=== PATIENT | female | born 1955 | race African-American/Black ===

== ENCOUNTER → 2020-02-03 09:29 | Outpatient (CLI) | payer BC, SELFPAY ==
--- NOTE | ~2020-02-03 | MMUS_ITS ---
EXAMINATION: MM diagnostic crystal LT w raji, US breast LT limited HISTORY: New 1 cm left breast mass, mid lateral aspect, anterior third, reported on 05/06/2019 bilate ral digital screening mammogram examinations TECHNIQUE: Full field and spot ML, MLO and cc 3-D tomosynthesis images of the left breast were perfor med and synthetic 2-D images were generated. CAD analysis was submitted and interpreted. High resolut ion lower outer quadrant left breast ultrasound was performed. COMPARISON: 05/06/2019 bilateral digital screening mammogram BREAST PARENCHYMAL COMPOSITION: There are scattered areas of fibroglandular density. FINDINGS: MAMMOGRAPHIC FINDINGS: There is a benign heavily calcified 5.5 x 9.5 mm fibroadenoma in the mid to lower inner left breast. There is a low-density circumscribed 5.5 x 9.5 mm mass in the mid to lower inner left breast; lower-o uter quadrant left breast ultrasound examination was performed. ULTRASOUND: 3:00 3 cm from nipple: There is a 7.3 x 7.9 mm sonolucency with through transmission posterior enhanc ement, compatible with simple cyst. IMPRESSION: 1. Benign 7.3 x 7.9 mm simple cyst at 3:00 3 cm from nipple, corresponding to new mass reported on sc reening mammogram of 05/06/2019 2. Benign calcified fibroadenoma of the mid to lower inner left breast BI-RADS Category 2: Benign finding(s). Routine mammographic screening is recommended. Reviewed, dictated and finalized at location A. IMPRESSION: 1. Benign 7.3 x 7.9 mm simple cyst at 3:00 3 cm from nipple, corresponding to n ew mass reported on screening mammogram of 05/06/2019 2. Benign calcified fibroadenoma of the mid to lower inner left breast BI-RADS Category 2: Benign finding(s). Routine mammographic screening is recommended.
== END ==
PROVIDERS: PCP Internal Medicine; Visit Provider Internal Medicine
DX: R92.8 Other abnormal and inconclusive findings on diagnostic imaging of breast (principal)
CPT/HCPCS: 76642; 77061; 77065; G0279

== ENCOUNTER → 2021-07-09 15:18 | Outpatient (CLI) | payer BC, SELFPAY ==
--- NOTE | ~2021-07-09 | MM_ITS ---
EXAMINATION: MM screening crystal BI w raji HISTORY: Screening mammogram TECHNIQUE: Craniocaudal and mediolateral oblique 3-D tomosynthesis images were obtained and synthetic 2-D images were generated. CAD analysis was submitted and interpreted. COMPARISON: 02/03/2020 diagnostic left mammogram and limited left breast ultrasound examination 05/06/2019 bilateral screening mammogram examination 10/06/2017 bilateral screening mammogram examination BREAST PARENCHYMAL COMPOSITION: There are scattered areas of fibroglandular density. FINDINGS: Occasional bilateral benign calcifications including up to 9 mm densely calcified left fibr oadenoma. There is no evidence of suspicious mass, calcification, or architectural distortion to sugg est malignancy in either breast. There has been no suspicious interval change. IMPRESSION: 1. No mammographic evidence of malignancy. 2. Recommend routine screening mammography in one year. BI-RADS Category 2: Benign finding(s). Reviewed, dictated and finalized at location A. 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
== END ==
PROVIDERS: PCP Internal Medicine; Visit Provider Internal Medicine
DX: Z12.31 Encounter for screening mammogram for malignant neoplasm of breast (principal)
CPT/HCPCS: 77063; 77067

== ENCOUNTER → 2022-12-25 12:22 | Outpatient (CLI) | payer BC, SELFPAY ==
--- NOTE | ~2022-12-25 | MM_ITS ---
EXAMINATION: MM screening [facility] BI w raji HISTORY: Screening mammogram TECHNIQUE: Craniocaudal and mediolateral oblique 3-D tomosynthesis images were obtained and synthetic 2-D images were generated. CAD analysis was submitted and interpreted. COMPARISON: 07/09/2021, 02/03/2020, 05/06/2019 BREAST PARENCHYMAL COMPOSITION: There are scattered areas of fibroglandular density. FINDINGS: No suspicious mass, calcification, or architectural distortion are identified in either nunu ast to suggest malignancy. There has been no suspicious interval change. IMPRESSION: 1. No mammographic evidence of malignancy. 2. Recommend routine screening mammography in one year. BI-RADS Category 1: Negative Reviewed, dictated and finalized at location A.
== END ==
PROVIDERS: PCP Internal Medicine; Visit Provider Internal Medicine
DX: Z12.31 Encounter for screening mammogram for malignant neoplasm of breast (principal)
CPT/HCPCS: 77063; 77067

== ENCOUNTER 2024-08-12 10:00 | Outpatient (CLI) | payer BC, SELFPAY ==
--- NOTE | ~2024-08-12 | MM_ITS ---
EXAMINATION: MM screening [facility] HISTORY: Screening TECHNIQUE: Craniocaudal and mediolateral oblique 3-D tomosynthesis images were obtained and synthetic 2-D images were generated. CAD analysis was submitted and interpreted. COMPARISON: 12/25/2022 and dating back to 05/06/2019 BREAST PARENCHYMAL COMPOSITION: There are scattered areas of fibroglandular density. FINDINGS: Punctate and bulky calcifications are detected bilaterally, stable and benign in appearance . Stable parenchymal pattern without suspicious microcalcifications, architectural distortion, discrete masses or significant asymmetry. IMPRESSION: 1. No mammographic evidence of malignancy. 2. Recommend routine screening mammography in one year. BI-RADS Category 2: Benign finding(s). Reviewed, dictated and finalized at location A.
--- OUTSIDE RECORDS SUMMARY | 2024-08-12 11:00 | XMS_ITS | Clinical Summary ---
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 Name Role Phone Unavailable Primary Care Provider Unavailabl e Social History Tobacco Use Types Packs/Day Years Used Date Smoking Tobacco: Never Assessed Comments Unknown Sex and Gender Information Value Date Recorded Sex Assigned at Not on file Legal Sex Female 7:50 PM CDT Gender Identity Not on file Sexual Orientation Not on file Plan of Treatment Health Maintenance Due Date Last Done Comments Colorectal Cancer Screening Colonoscopy (10 Years) 1955 Hepatitis C 1974 DTaP, Tdap and Td Vaccines (1 - Tdap) 10/01/1975 Zoster Vaccines (1 of 2) 2006 Mammogram Screening 02/27/2017 02/27/2015, 02/08/2014, 04/07/2012, Additional history exists Dexa Scan (General) 2021 Pneumococcal Vaccine: 65+ Years (1 of 1 - PCV) 2021 COVID-19 Vaccine (1 - 2023- season) 2024 Influenza Adult (#1) 2024 RSV Immunization or 60+ Years (1 - 1-dose 75+ series) 10/01/2031 Meningococcal B Vaccine Aged Out No l onger eligible based on patient's age to complete this topic Meningococcal Vaccine Aged Out No richard maki eligible based on patient's age to complete this topic RSV Immunizations Under 20 Months Aged Out No longer eligible based on patient's age to complete this topic Procedures Procedure Name Priority Date/Time Associated Diagnosis Comments MAMMOGRAM GENERIC (SCAN ORDER) 02/27/2015 from Last 3 Months or Most Recently Relevant to Health Maintenance Results * MAMMOGRAM GENERIC (02/27/2015) Anatomical Region Laterality Modality Other 02/27/2015 Narrative 02/27/2015 Ordered by an unspecified provider. us Documents Scanned SCANNING Final Result from Last 3 Months or Most Recently Relevant to Health Maintenance
--- OUTSIDE RECORDS SUMMARY | 2024-08-12 11:00 | XMS_ITS | Data Portability ---
Author Organization [facility], [employer] Address [address] [place] [address] Care Team Providers Care Transport Tech Name Role Phone YVROSE NEAL Primary Care Provider Assessment Encounter Date Assessment Date Assessment LastModified by Organization Details LastModified Time 07/24/2023 07/24/2023 Patient presented for follow up. Studies ordered as below. Discussed plan with patient/careg iver, who expressed understanding . Follow up as noted below. Not available 07/24/2023 13:13:37 10/30/2023 10/30/2023 Patient presented for follow up. Studies ordered as below. Discussed plan with patient/careg iver, who expressed understanding . Follow up as noted below. Not available 10/30/2023 11:32:34 02/12/2024 02/12/2024 Patient presented for follow up. Studies ordered as below. Discussed plan with patient/careg iver, who expressed understanding . Follow up as noted below. Not available 02/12/2024 15:13:44 05/14/2024 05/14/2024 Patient presented for follow up. Studies ordered as below. Discussed plan with patient/careg iver, who expressed understanding . Follow up as noted below. Not available 05/14/2024 12:54:50 Plan of Treatment Reminders Order Date Submit Date Provider Last Modified By Organization Details Last Modified Time Details Appointments ESTABLISH ED PATIENT 15 2024 11:15A Julienne Neal MD Not available Not available Not available Lab lipid panel w/ direct LDL, serum 05/14/ 024 [facility], [address], [place], [address], 05/21/2024 04:02:58 TSH, serum or plasma 2023 024 [facility], [address], [place], [address], 05/21/2024 04:02:58 CMP, serum or plasma 2023 024 [facility], [address], [place], [address], 05/21/2024 04:02:57 CBC w/ auto diff 2023 024 [facility], [address], [place], [address], 05/21/2024 04:02:58 HbA1c (hemoglob in A1c), blood 2023 024 [facility], [address], [place], [address], 05/14/2024 13:27:24 vitamin B12, serum 2023 024 [facility], [address], [place], [address], 05/14/2024 13:27:23 lipid panel w/ direct LDL, serum 2023 024 [facility], [address], [place], [address], 02/19/2024 05:33:50 CMP, serum or plasma 2023 024 [facility], [address], [place], [address], 02/19/2024 05:33:50 CBC 2023 024 [facility], [address], [place], [address], 02/19/2024 05:33:50 TSH, serum or plasma [address] [facility], [address], [place], [address], 11/06/2023 04:04:05 CMP, serum or plasma [address] [facility], [address], [place], [address], 11/01/2023 11:18:[address] [facility], [address], [place], [address], 11/06/2023 04:04:05 HbA1c (hemoglob in A1c), blood [address] [facility], [address], [place], [address], 11/01/2023 11:18:25 vitamin B12, serum [address] [facility], [address], [place], [address], 11/01/2023 11:18:27 lipid panel w/ direct LDL, serum [address] [facility], [address], [place], [address], 07/31/2023 04:11:18 CMP, serum or plasma [address] [facility], [address], [place], [address], 07/28/2023 02:38:[address] [facility], [address], [place], [address], 07/31/2023 04:11:18 HbA1c (hemoglob in A1c), blood [address] [facility], [address], [place], [address], 09/11/2023 00:34:49 vitamin B12, serum 2023 024 [facility], [address] , [place], [address], 09/11/2023 00:39:42 lipid panel w/ direct LDL, serum 2022 023 [facility] Not available 04/24/2023 05:27:23 CMP, serum or plasma 2022 023 [facility] Not available 04/24/2023 05:27:25 CBC 2022 023 [facility] Not available 04/24/2023 05:27:[address] referral 2023 024 [facility], [address] , [place], [address], 03/11/2024 04:06:[address] referral 2023 024 [place] [facility], [facility] , [place], [address], 08/21/2023 05:13:[address] referral 2022 023 [place] [facility], [address] , [place], [address], 05/15/2023 05:28:03 Procedures None recorded. Surgeries None recorded. Imaging MAMMO, screening , digital, bilateral 2023 024 [facility], [address], [place], [address], 05/28/2024 05:26:11 bone density 2023 024 [facility], [address], [place], [address], 05/28/2024 05:26:11 MAMMO, screening , digital, bilateral 2023 024 [facility], [address], [place], [address], 02/26/2024 04:10:38 bone density 2023 024 [facility], [address], [place], [address], 02/26/2024 04:10:38 bone density 2023 024 [facility], [address], [place], [address], 08/07/2023 04:08:17 bone density 2022 023 [facility], [address], [place], [address], 05/01/2023 05:42:11 Medication Orders sennoside s 8.6 mg-docusa te sodium 50 mg tablet 2023 024 [id number], [address], [place], [id number], 10/30/2023 11:52:14 atorvasta tin 20 mg tablet 2023 024 [facility] #21714, [address], [place], [id number], 10/30/2023 11:52:28 hydrochlo rothiazid e 12.5 mg tablet 2023 024 [facility] #18780, [address], [place], [id number], 10/30/2023 11:52:24 amlodipin e 10 mg tablet 2023 024 [facility] #08650, [address], [place], [id number], 10/30/2023 11:52:29 metformin 500 mg tablet 2023 024 [facility] #36084, [address], [place], [id number], 10/30/2023 11:52:28 sennoside s 8.6 mg-docusa te sodium 50 mg tablet 2023 024 [facility] [employer] [id number], [address], [place], [id number], 07/24/2023 13:41:04 Patient TargetsNo targets recorded. Patient Instructions Encounter Date Encounter Id Patient Instructions Last Modified By Organization Details Last Modified Time 04/17/2023 [id number] mammogram: about this test [email or web address] Not available 04/17/2023 13:23:35 body mass index: care instructions [email or web address] Not available 04/17/2023 13:23:35 learning about healthy weight mshenouda Not available 04/17/2023 13:23:35 07/24/2023 [id number] mammogram: about this test mshenouda Not available 07/24/2023 13:40:55 body mass index: care instructions mshenouda Not available 07/24/2023 13:40:55 learning about healthy weight mshenouda Not available 07/24/2023 13:40:54 10/30/2023 [id number] mammogram: about this test mshenouda Not available 10/30/2023 11:51:59 body mass index: care instructions mshenouda Not available 10/30/2023 11:52:00 learning about healthy weight mshenouda Not available 10/30/2023 11:51:59 02/12/2024 [id number] knee arthritis: care instructions mshenouda Not available 02/12/2024 15:40:46 mammogram: about this test mshenouda Not available 02/12/2024 15:40:45 body mass index: care instructions mshenouda Not available 02/12/2024 15:40:46 learning about healthy weight mshenouda Not available 02/12/2024 15:40:46 living will mshenouda Not available 01/18 15:39:50 05/14/2024 [id number] mammogram: about this test mshenouda Not available 05/14/2024 13:26:50 body mass index: care instructions mshenouda Not available 05/14/2024 13:26:49 learning about healthy weight mshenouda Not available 05/14/2024 13:26:50 Reason for Referral Inserter Referral for Stephen ign hypertension Referring Physician: Yvrose Neal, Internal Medicine, Encounter Date: 04/17/2023 Inserter Referral for Stephen ign hypertension Referring Physician: Yvrose Neal, Internal Medicine, Encounter Date: 07/24/2023 Inserter Referral for Stephen ign hypertension Referring Physician: Yvrose Neal, Internal Medicine, Encounter Date: 02/12/2024 Results Created Date Observation Date Name Description Value Unit Range Abnormal Flag Note LastModifiedBy Organization Detail LastModifiedTime 07/24/1907/24/2023 HEMOG LOBIN A1C hemoglobin A1C 5.7 % 4.8-5. 6 high JOANNA L RANGE BASED ON LG COL 2 (DCCT /NGSP ): Non-D iabet ic: < 5.7% Pre-D iabet es: 5.7 - 6.4% Diabe dione: => 6.5% GLYCE KATHARINE CONTR OL: < 7.0% Not Available [facility] [address] [facility] [address], [place], [address], 07/26/2023 13:17:12 07/24/1907/24/2023 HEMOG LOBIN A1C estimated average glucose 116 Not Available [facility] [address] [facility] [address], [place], [address], 07/26/2023 13:17:12 07/24/1907/24/2023 CBC WITH AUTO- DIFFE RENTI AL WBC 3.3 10*3/ uL 3.4-10 .8 low Not Available [facility] [address], [place], [address], 07/26/2023 13:17:13 07/24/19 24 07/24/2023 CBC WITH AUTO- DIFFE RENTI AL RBC 4.04 10*6/ uL 3.80-5 .30 Not Available [facility] [address], [place], [address], 07/26/2023 13:17:13 07/24/19 24 07/24/2023 CBC WITH AUTO- DIFFE RENTI AL HGB 12.1 g/dL 11.1-1 5.9 Not Available [facility] [address], [place], [address], 07/26/2023 13:17:13 07/24/19 24 07/24/2023 CBC WITH AUTO- DIFFE RENTI AL HCT 37.5 % 34.0-4 6.6 Not Available [facility] [address] [facility], [place], [address], 07/26/2023 13:17:13 07/24/19 24 07/24/2023 CBC WITH AUTO- DIFFE RENTI AL MCV 93 fL 79-97 Not Available [facility] [address] [facility] [address], [place], [address], 07/26/2023 13:17:13 07/24/19 24 07/24/2023 CBC WITH AUTO- DIFFE RENTI AL MCH 30.0 pg 26.6-3 3.0 Not Available [facility] [address] [facility] [address], [place], [address], 07/26/2023 13:17:13 07/24/19 24 07/24/2023 CBC WITH AUTO- DIFFE RENTI AL MCHC 32.3 g/dL 31.5-3 5.7 Not Available [facility] [address], [place], [address], 07/26/2023 13:17:13 07/24/19 24 07/24/2023 CBC WITH AUTO- DIFFE RENTI AL RDW 15.6 % 11.5-1 4.5 high Not Available [facility] [address], [place], [address], 07/26/2023 13:17:13 07/24/19 24 07/24/2023 CBC WITH AUTO- DIFFE RENTI AL platelets 248 10*3/ uL 150-40 0 Not Available [facility] [address], [place], [address], 07/26/2023 13:17:13 07/24/19 24 07/24/2023 CBC WITH AUTO- DIFFE RENTI AL MPV 12 fL 9-13 Not Available [facility] [address] [facility] [address], [place], [address], 07/26/2023 13:17:13 07/24/19 24 07/24/2023 CBC WITH AUTO- DIFFE RENTI AL neutrophils 32.6 % 40.0-7 4.0 low Not Available [facility] [address] [facility] [address] [facility] [address], [place], [address], 07/26/2023 13:17:13 07/24/19 24 07/24/2023 CBC WITH AUTO- DIFFE RENTI AL absolute neutrophils 1.09 10*3/ uL 1.40-7 .00 low Not Available [facility] [address] [facility] [address], [place], [address], 07/26/2023 13:17:13 07/24/19 24 07/24/2023 CBC WITH AUTO- DIFFE RENTI AL lymphocytes 50.3 % 14.0-4 6.0 high Not Available [facility] [address] [facility] [address], [place], [address], 07/26/2023 13:17:13 07/24/19 24 07/24/2023 CBC WITH AUTO- DIFFE RENTI AL absolute lymphocytes 1.68 10*3/ uL 0.70-3 .10 Not Available [facility] [address] [facility] [address], [place], [address], 07/26/2023 13:17:13 07/24/19 24 07/24/2023 CBC WITH AUTO- DIFFE RENTI AL monocytes 14.1 % 4.0-12 .0 high Not Available [facility] [address] [facility] [address], [place], [address], 07/26/2023 13:17:13 07/24/19 24 07/24/2023 CBC WITH AUTO- DIFFE RENTI AL absolute monocytes 0.47 10*3/ uL 0.10-0 .90 Not Available [facility] [address] [facility] [address], [place], [address], 07/26/2023 13:17:13 07/24/19 24 07/24/2023 CBC WITH AUTO- DIFFE RENTI AL eosinophils 2.1 % 0.0-5. 0 Not Available [facility] [address] [facility] [address], [place], [address], 07/26/2023 13:17:13 07/24/19 24 07/24/2023 CBC WITH AUTO- DIFFE RENTI AL absolute eosinophils 0.07 10*3/ uL 0.00-0 .40 Not Available [facility] [address] [facility] [address], [place], [address], 07/26/2023 13:17:13 07/24/19 24 07/24/2023 CBC WITH AUTO- DIFFE RENTI AL basophils 0.6 % 0.0-3. 0 Not Available [facility] [address] [facility] [address], [place], [address], 07/26/2023 13:17:13 07/24/19 24 07/24/2023 CBC WITH AUTO- DIFFE RENTI AL absolute basophils 0.02 10*3/ uL 0.00-0 .20 Not Available [facility] [address] [facility] [address], [place], [address], 07/26/2023 13:17:13 07/24/1907/24/2023 CBC WITH AUTO- DIFFE RENTI AL imm. gran. 0.3 % 0.0-2. 0 Not Available [facility] [address] [facility] [address], [place], [address], 07/26/2023 13:17:13 07/24/19 24 07/24/2023 CBC WITH AUTO- DIFFE RENTI AL abs. imm. gran. 0.01 10*3/ uL 0.00-0 .10 Not Available [facility] [address] [facility] [address], [place], [address], 07/26/2023 13:17:13 07/24/19 24 07/24/2023 COMPR EHENS TEA METAB OLIC PANEL sodium 142 mmol/ L 134-14 4 Not Available [facility] [address] [facility] [address], [place], [address], 07/26/2023 13:17:13 07/24/19 24 07/24/2023 COMPR EHENS TEA METAB OLIC PANEL potassium 4.2 mmol/ L 3.5-5. 2 Not Available [facility] [address] [facility] [address], [place], [address], 07/26/2023 13:17:13 07/24/19 24 07/24/2023 COMPR EHENS TEA METAB OLIC PANEL chloride 103 mmol/ L 97-108 Not Available [facility] [address] [facility] [address], [place], [address], 07/26/2023 13:17:13 07/24/1907/24/2023 COMPR EHENS TEA METAB OLIC PANEL carbon dioxide (co2) 29.0 mmol/ L 18.0-2 9.0 Not Available [facility] [address] [facility] [address], [place], [address], 07/26/2023 13:17:13 07/24/19 24 07/24/2023 COMPR EHENS TEA METAB OLIC PANEL glucose 90 mg/dL 65-99 Joanna l Fasti ng: < 100 mg/dL Impai red Fasti n - 125 mg/dL Diagn ostic of Diabe dione: => 126 mg/dL Ameri can Diabe dione [facility] n, 2007 Not Available [facility] [address] [facility] [address], [place], [address], 07/26/2023 13:17:13 07/24/19 24 07/24/2023 COMPR EHENS TEA METAB OLIC PANEL urea nitrogen (BUN) 15 mg/dL 8- Not Available [facility] [address] [facility] [address], [place], [address], 07/26/2023 13:17:13 07/24/19 24 07/24/2023 COMPR EHENS TEA METAB OLIC PANEL creatinine 1.06 mg/dL 0.57-1 .00 high Not Available [facility] [address] [facility] [address], [place], [address], 07/26/2023 13:17:13 07/24/19 24 07/24/2023 COMPR EHENS TEA METAB OLIC PANEL eGFR for nonafrican AM 52 mL/mi nute/ 1.73_ m2 >59 low Not Available [facility] [address] [facility] [address], [place], [address], 07/26/2023 13:17:13 07/24/19 24 07/24/2023 COMPR EHENS TEA METAB OLIC PANEL eGFR for AM 63 mL/mi nute/ 1.73_ m2 >59 MDRD Study Equat ion: The calcu lated GFR is NOT appli cable for pedia tric (< 18 years old) and > 70 year old patie nts and patie nts that are NOT of [place] . Not Available [facility] [address] [facility] [address], [place], [address], 07/26/2023 13:17:13 07/24/1907/24/2023 COMPR EHENS TEA METAB OLIC PANEL calcium 9.8 mg/dL 8.7-10 .3 Not Available [facility] [address] [facility] [address] [facility] [address], [place], [address], 07/26/2023 13:17:13 07/24/19 24 07/24/2023 COMPR EHENS TEA METAB OLIC PANEL protein, total 7.1 gm/dL 6.4-8. 3 Not Available [facility] [address] [facility] [address], [place], [address], 07/26/2023 13:17:13 07/24/19 24 07/24/2023 COMPR EHENS TEA METAB OLIC PANEL albumin 4.2 gm/dL 3.5-5. 2 Not Available [facility] [address] [facility] [address], [place], [address], 07/26/2023 13:17:13 07/24/19 24 07/24/2023 COMPR EHENS TEA METAB OLIC PANEL bilirubin, total 0.70 mg/dL 0.00-1 .20 Not Available [facility] [address] [facility] [address], [place], [address], 07/26/2023 13:17:13 07/24/19 24 07/24/2023 COMPR EHENS TEA METAB OLIC PANEL alkaline phosphatase (ALP) 53 U/L 39-117 Not Available [facility] [address] [facility] [address], [place], [address], 07/26/2023 13:17:13 07/24/19 24 07/24/2023 COMPR EHENS TEA METAB OLIC PANEL aspartate aminotransfe rase (AST) 17 U/L 0-32 Not Available [facility] [address] [facility] [address], [place], [address], 07/26/2023 13:17:13 07/24/19 24 07/24/2023 COMPR EHENS TEA METAB OLIC PANEL alanine aminotransfe rase (ALT) 13 U/L 0-33 Not Available [facility] [address] [facility] [address], [place], [address], 07/26/2023 13:17:13 07/24/19 24 07/24/2023 COMPR EHENS TEA METAB OLIC PANEL A/G ratio (calculated) 1.4 ratio 1.0-2. 7 Not Available [facility] [address] [facility] [address], [place], [address], 07/26/2023 13:17:13 07/24/19 24 07/24/2023 COMPR EHENS TEA METAB OLIC PANEL globulin (calculated) 2.9 gm/dL 1.5-3. 8 Not Available [facility] [address] [facility] [address], [place], [address], 07/26/2023 13:17:13 07/24/19 24 07/24/2023 COMPR EHENS TEA METAB OLIC PANEL BUN/creatini ne ratio (calculated) 14.2 ratio 8.0-20 .0 Not Available [facility] [address] [facility] [address], [place], [address], 07/26/2023 13:17:13 07/24/19 24 07/24/2023 COMPR EHENS TEA METAB OLIC PANEL serum hemolysis index NORMAL index normal Not Available [facility] [address] [facility] [address], [place], [address], 07/26/2023 13:17:13 07/24/19 24 07/24/2023 LIPID PANEL W/ CALC. LDL cholesterol, total 194 mg/dL 100-19 9 Not Available [facility] [address] [facility] [address], [place], [address], 07/26/2023 13:17:13 07/24/19 24 07/24/2023 LIPID PANEL W/ CALC. LDL HDL cholesterol 74 mg/dL =>40 Not Available [facility] [address], [place], [address], 07/26/2023 13:17:13 07/24/19 24 07/24/2023 LIPID PANEL W/ CALC. LDL LDL cholesterol (calculated) 111 mg/dL 0-99 high Not Available [facility] [address] [facility] [address], [place], [address], 07/26/2023 13:17:13 07/24/19 24 07/24/2023 LIPID PANEL W/ CALC. LDL triglyceride s 46 mg/dL 50-149 low Not Available [facility] [address], [place], [address], 07/26/2023 13:17:13 07/24/19 24 07/24/2023 LIPID PANEL W/ CALC. LDL chol/HDL ratio (calculated) 2.62 ratio 0.00-5 .00 Not Available [facility] [address] [facility] [address], [place], [address], 07/26/2023 13:17:13 07/24/19 24 07/24/2023 LIPID PANEL W/ CALC. LDL VLDL cholesterol (calculated) 9 mg/dL 5-40 Not Available [facility] [address] [facility] [address], [place], [address], 07/26/2023 13:17:13 07/24/19 24 07/24/2023 VITAM IN B12 vitamin B12 570 pg/mL 232-12 45 Not Available [facility] [address] [facility] [address], [place], [address], 07/26/2023 13:17:14 10/30/19 24 10/30/2023 HEMOG LOBIN A1C hemoglobin A1C 6.0 % 4.8-5. 6 high JOANNA L RANGE BASED ON LG COL 2 (DCCT /NGSP ): Non-D iabet ic: < 5.7% Pre-D iabet es: 5.7 - 6.4% Diabe dione: => 6.5% GLYCE KATHARINE CONTR OL: < 7.0% Not Available [facility] [address], [place], [address], 11/01/2023 11:18:25 10/30/19 24 10/30/2023 HEMOG LOBIN A1C estimated average glucose 126 Not Available [facility] [address], [place], [address], 11/01/2023 11:18:25 10/30/19 24 10/30/2023 CBC WITH AUTO- DIFFE RENTI AL WBC 3.6 10*3/ uL 3.4-10 .8 Not Available [facility] [address], [place], [address], 11/01/2023 11:18:25 10/30/19 24 10/30/2023 CBC WITH AUTO- DIFFE RENTI AL RBC 4.08 10*6/ uL 3.80-5 .30 Not Available [facility] [address], [place], [address], 11/01/2023 11:18:25 10/30/19 24 10/30/2023 CBC WITH AUTO- DIFFE RENTI AL HGB 11.9 g/dL 11.1-1 5.9 Not Available [facility] [address], [place], [address], 11/01/2023 11:18:25 10/30/19 24 10/30/2023 CBC WITH AUTO- DIFFE RENTI AL HCT 38.1 % 34.0-4 6.6 Not Available [facility] [address] [facility] [address], [place], [address], 11/01/2023 11:18:25 10/30/19 24 10/30/2023 CBC WITH AUTO- DIFFE RENTI AL MCV 93 fL 79-97 Not Available [facility] [address] [facility] [address], [place], [address], 11/01/2023 11:18:25 10/30/19 24 10/30/2023 CBC WITH AUTO- DIFFE RENTI AL MCH 29.2 pg 26.6-3 3.0 Not Available [facility] [address], [place], [address], 11/01/2023 11:18:25 10/30/19 24 10/30/2023 CBC WITH AUTO- DIFFE RENTI AL MCHC 31.2 g/dL 31.5-3 5.7 low Not Available [facility] [address] [facility] [address], [place], [address], 11/01/2023 11:18:25 10/30/19 24 10/30/2023 CBC WITH AUTO- DIFFE RENTI AL RDW 16.0 % 11.5-1 4.5 high Not Available [facility] [address] [facility] [address], [place], [address], 11/01/2023 11:18:25 10/30/19 24 10/30/2023 CBC WITH AUTO- DIFFE RENTI AL platelets 272 10*3/ uL 150-40 0 Not Available [facility] [address] [facility] [address], [place], [address], 11/01/2023 11:18:25 10/30/19 24 10/30/2023 CBC WITH AUTO- DIFFE RENTI AL MPV 12 fL 9-13 Not Available [facility] [address] [facility] [address], [place], [address], 11/01/2023 11:18:25 10/30/19 24 10/30/2023 CBC WITH AUTO- DIFFE RENTI AL neutrophils 33.5 % 40.0-7 4.0 low Not Available [facility] [address], [place], [address], 11/01/2023 11:18:25 10/30/19 24 10/30/2023 CBC WITH AUTO- DIFFE RENTI AL absolute neutrophils 1.19 10*3/ uL 1.40-7 .00 low Not Available [facility] [address] [facility] [address], [place], [address], 11/01/2023 11:18:25 10/30/19 24 10/30/2023 CBC WITH AUTO- DIFFE RENTI AL lymphocytes 45.9 % 14.0-4 6.0 Not Available [facility] [address] [facility] [address], [place], [address], 11/01/2023 11:18:25 10/30/19 24 10/30/2023 CBC WITH AUTO- DIFFE RENTI AL absolute lymphocytes 1.63 10*3/ uL 0.70-3 .10 Not Available [facility] [address] [facility] [address], [place], [address], 11/01/2023 11:18:25 10/30/19 24 10/30/2023 CBC WITH AUTO- DIFFE RENTI AL monocytes 16.1 % 4.0-12 .0 high Not Available [facility] [address] [facility] [address], [place], [address], 11/01/2023 11:18:25 10/30/19 24 10/30/2023 CBC WITH AUTO- DIFFE RENTI AL absolute monocytes 0.57 10*3/ uL 0.10-0 .90 Not Available [facility] [address] [facility] [address], [place], [address], 11/01/2023 11:18:25 10/30/19 24 10/30/2023 CBC WITH AUTO- DIFFE RENTI AL eosinophils 4.2 % 0.0-5. 0 Not Available [facility] [address] [facility] [address], [place], [address], 11/01/2023 11:18:25 10/30/19 24 10/30/2023 CBC WITH AUTO- DIFFE RENTI AL absolute eosinophils 0.15 10*3/ uL 0.00-0 .40 Not Available [facility] [address] [facility] [address], [place], [address], 11/01/2023 11:18:25 10/30/19 24 10/30/2023 CBC WITH AUTO- DIFFE RENTI AL basophils 0.3 % 0.0-3. 0 Not Available [facility] [address] [facility] [address], [place], [address], 11/01/2023 11:18:25 10/30/19 24 10/30/2023 CBC WITH AUTO- DIFFE RENTI AL absolute basophils 0.01 10*3/ uL 0.00-0 .20 Not Available [facility] [address] [facility] [address], [place], [address], 11/01/2023 11:18:25 10/30/19 24 10/30/2023 CBC WITH AUTO- DIFFE RENTI AL imm. gran. 0.0 % 0.0-2. 0 Not Available [facility] [address] [facility] [address], [place], [address], 11/01/2023 11:18:25 10/30/19 24 10/30/2023 CBC WITH AUTO- DIFFE RENTI AL abs. imm. gran. 0.00 10*3/ uL 0.00-0 .10 Not Available [facility] [address] [facility] [address], [place], [address], 11/01/2023 11:18:25 10/30/19 24 10/30/2023 COMPR EHENS TEA METAB OLIC PANEL sodium 140 mmol/ L 134-14 4 Not Available [facility] [address] [facility] [address], [place], [address], 11/01/2023 11:18:26 10/30/19 24 10/30/2023 COMPR EHENS TEA METAB OLIC PANEL potassium 4.2 mmol/ L 3.5-5. 2 Not Available [facility] [address] [facility] [address], [place], [address], 11/01/2023 11:18:26 10/30/19 24 10/30/2023 COMPR EHENS TEA METAB OLIC PANEL chloride 102 mmol/ L 97-108 Not Available [facility] [address] [facility] [address], [place], [address], 11/01/2023 11:18:26 10/30/19 24 10/30/2023 COMPR EHENS TEA METAB OLIC PANEL carbon dioxide (co2) 31.0 mmol/ L 18.0-2 9.0 high Not Available [facility] [address] [facility] [address], [place], [address], 11/01/2023 11:18:26 10/30/19 24 10/30/2023 COMPR EHENS TEA METAB OLIC PANEL glucose 100 mg/dL 65-99 high Joanna l Fasti ng: < 100 mg/dL Impai red Fasti n - 125 mg/dL Diagn ostic of Diabe dione: => 126 mg/dL Ameri can [facility], 2008 Not Available [facility] [address] [facility] [address], [place], [address], 11/01/2023 11:18:26 10/30/19 24 10/30/2023 COMPR EHENS TEA METAB OLIC PANEL urea nitrogen (BUN) 16 mg/dL 8-23 Not Available [facility] [address] [facility] [address], [place], [address], 11/01/2023 11:18:26 10/30/19 24 10/30/2023 COMPR EHENS TEA METAB OLIC PANEL creatinine 1.01 mg/dL 0.57-1 .00 high Not Available [facility] [address], [place], [address], 11/01/2023 11:18:26 10/30/19 24 10/30/2023 COMPR EHENS TEA METAB OLIC PANEL eGFR for nonafrican AM 55 mL/mi nute/ 1.73_ m2 >59 low Not Available [facility] [address] [facility] [address], [place], [address], 11/01/2023 11:18:26 10/30/19 24 10/30/2023 COMPR EHENS TEA METAB OLIC PANEL eGFR for AM 66 mL/mi nute/ 1.73_ m2 >59 MDRD Study Equat ion: The calcu lated GFR is NOT appli cable for pedia tric (< 18 years old) and > 70 year old patie nts and patie nts that are NOT of stead [place] state . Not Available [facility] [address], [place], [address], 11/01/2023 11:18:26 10/30/19 24 10/30/2023 COMPR EHENS TEA METAB OLIC PANEL calcium 10.0 mg/dL 8.7-10 .3 Not Available [facility] [address] [facility] [address] [place], [address], 11/01/2023 11:18:26 10/30/19 24 10/30/2023 COMPR EHENS TEA METAB OLIC PANEL protein, total 7.7 gm/dL 6.4-8. 3 Not Available [facility] [address], [place], [address], 11/01/2023 11:18:26 10/30/19 24 10/30/2023 COMPR EHENS TEA METAB OLIC PANEL albumin 4.2 gm/dL 3.5-5. 2 Not Available [facility] [address] [facility] [address], [place], [address], 11/01/2023 11:18:26 10/30/19 24 10/30/2023 COMPR EHENS TEA METAB OLIC PANEL bilirubin, total 0.60 mg/dL 0.00-1 .20 Not Available [facility] [address] [facility] [address], [place], [address], 11/01/2023 11:18:26 10/30/19 24 10/30/2023 COMPR EHENS TEA METAB OLIC PANEL alkaline phosphatase (ALP) 56 U/L 39-117 Not Available [facility] [address] [facility] [address], [place], [address], 11/01/2023 11:18:26 10/30/19 24 10/30/2023 COMPR EHENS TEA METAB OLIC PANEL aspartate aminotransfe rase (AST) 20 U/L 0-32 Not Available [facility] [address] [facility] [address], [place], [address], 11/01/2023 11:18:26 10/30/19 24 10/30/2023 COMPR EHENS TEA METAB OLIC PANEL alanine aminotransfe rase (ALT) 16 U/L 0-33 Not Available [facility] [address] [facility] [address], [place], [address], 11/01/2023 11:18:26 10/30/19 24 10/30/2023 COMPR EHENS TEA METAB OLIC PANEL A/G ratio (calculated) 1.2 ratio 1.0-2. 7 Not Available [facility] [address] [facility] [address], [place], [address], 11/01/2023 11:18:26 10/30/19 24 10/30/2023 COMPR EHENS TEA METAB OLIC PANEL globulin (calculated) 3.5 gm/dL 1.5-3. 8 Not Available [facility] [address] [facility] [address], [place], [address], 11/01/2023 11:18:26 10/30/19 24 10/30/2023 COMPR EHENS TEA METAB OLIC PANEL BUN/creatini ne ratio (calculated) 15.8 ratio 8.0-20 .0 Not Available [facility] [address], [place], [address], 11/01/2023 11:18:26 10/30/19 24 10/30/2023 COMPR EHENS TEA METAB OLIC PANEL serum hemolysis index NORMAL index normal Not Available [facility] [address] [facility] [address], [place], [address], 11/01/2023 11:18:26 10/30/19 24 10/30/2023 THYRO ID-ST IM. HORMO NE (TSH) , HIGH- SENSI TIVE thyroid-stim . hormone (TSH), hs 0.62 uIU/m L 0.27-4 .20 Not Available [facility] [address] [facility] [address], [place], [address], 11/01/2023 11:18:26 10/30/19 24 10/30/2023 VITAM IN B12 vitamin B12 573 pg/mL 232-12 45 Not Available [facility] [address] [facility] [address], [place], [address], 11/01/2023 11:18:27 12/08/19 24 11/30/2023 exerc ise stres s test No observ ation record ed. [facility] [address], [place], [address], 02/12/2024 15:35:18 12/08/19 24 11/15/2023 elect chastity teresa am No observ ation record ed. [facility] [address], [place], [address], 02/12/2024 15:35:18 Result Notes None recorded. Problems Name Problem SNOMED Code Status Onset Date Resolution Date Notes Provider Name and Address Organization Details Recorded Time Essential hypertensio n 90163146 Completed 09/01/2017 Yvrose Neal MD [address], [place], [address], [facility] 8 16:01:11 Overweight 698438669 Completed 201712/02/2019 Yvrose Neal MD [address], [place], [address], [facility] 0 11:15:35 Benign hypertensio n 74761291 Active 2017 Yvrose Neal MD [address], [place], [address], [facility] 8 16:01:05 Osteoarthri tis of knee 779242752 Active 2017 Yvrose Neal MD [address], [place], [address], [facility] 8 16:08:46 Body mass index 30+ - obesity 869343372 Completed 201806/01/2020 Yvrose Neal MD [address], [place], [address], [facility] 1 11:45:28 Mixed hyperlipide han 046150973 Active 2018 Yvrose Neal MD [address], [place], [address], [facility] 9 11:51:44 Menopause Active 2018 Yvrose Neal MD [address], [place], [address], [facility] 2 14:22:48 Body mass index 25-29 - overweight 393727864 Completed 202003/14/2021 Yvrose Neal MD [address], [place], [address], [facility] 1 11:45:18 Osteopenia 177058796 Active 2020 Yvrose Neal MD [address], [place], [address], [facility] 1 15:36:36 Electrocard iogram abnormal 636653178 Active 2020 Yvrose Neal MD [address], [place], [address], [facility] 1 16:35:22 Body mass index 30+ - obesity 150736430 Active 2020 Yvrose Neal MD [address], [place], [address], [facility] 1 11:45:28 Long-term drug therapy Active 2023 Yvrose Neal MD [address], [place], [address], [facility] 4 13:35:06 Chronic constipatio n 823859406 Active 2023 Yvrose Neal MD [address], [place], [address], [facility] 4 13:40:27 Problem Notes None recorded. Procedures Surgical History Date Name Laterality Status Provider Name and Address Organization Details Recorded Time 2 Colonoscopy completed Yvrose Neal MD [address], [place], [address], [facility] 05/07/2022 23:05:45 0 Date of Last Mammogram completed Vero Diamond [facility] 06/01/2020 10:27:47 Imaging Results Imaging Date Name Status LastModified by Organization Details LastModified Time 11/30/2023 exercise stress test completed [facility] [address], [place], [address], 02/12/2024 15:35:18 11/15/2023 electrocardiogram completed [facility] [address], [place], [address], 02/12/2024 15:35:18 Procedure Notes None recorded. Medical Equipment None Reported. Allergies Allergen ID Allergen Name Allergen Category Reaction Reaction Severity Criticality Documentation Date Start Date Code Code System Note Provider Name and Address Organization Details Recorded Time 6871 Flagyl medicatio n rash Not available Not available 09/01/2017 [facility] 15:[facility]47 6872 Diovan medicatio n angioedem a Not available Not available 09/01/2017 2 RxNorm Desire godoy [facility] 8 15:39:58 Medications Name Sig Start Date Stop Date Status Note LastModified by Organization Details LastModified Time metformin 500 mg tablet Take 1 tablet twice a day by oral route. active Not Available Not Available No t Available atorvastati n 20 mg tablet Take 1 tablet every day by oral route at bedtime. active Not Available Not Available No t Available atorvastati n 10 mg tablet TAKE 1 TABLET BY MOUTH EVERY DAY AT BEDTIME active Not Available Not Available No t Available fluconazole 150 mg tablet 04/09 completed Not Available Not Available Not Available hydrocodone 5 mg-acetamin ophen 325 mg tablet TAKE 1 TABLET BY MOUTH EVERY 6 HOURS NEEDED FOR PAIN 01/15 completed Not Available Not Available Not Available spironolact one 100 mg tablet 1 tab PO QAM 10/15 completed Not Available Not Available Not Available sennosides 8.6 mg-docusate sodium 50 mg tablet Take 2 tablets every day by oral route. 2023 active Not Available Not Available Not Avai lable hydralazine 25 mg tablet TK 1 T PO BID 12/01 completed Not Available Not Available Not Available amlodipine 2.5 mg tablet Take 1 tablet every day by oral route. 12/01 completed Not Available Not Available Not Available amlodipine 5 mg tablet 1 tab PO QAM 10/29 completed Not Available Not Available Not Available triamcinolo ne acetonide 0.1 % topical cream APPLY THIN COAT TO AFFECTED AREA TWICE A DAY active Not Available Not Available No t Available amlodipine 10 mg tablet TAKE 1 TABLET EVERY MORNING active Not Available Not Available No t Available cephalexin 500 mg capsule TAKE ONE CAPSULE BY MOUTH FOUR TIMES DAILY 01/15 completed Not Available Not Available Not Available neomycin-po lymyxin-dex ameth 3.5 mg/mL-10,00 0 unit/mL-0.1 % eye drops INSTILL 1 DROP INTO AFFECTED EYE(S) BY OPHTHALMI C ROUTE EVERY 3-4 HOURS 06/01 completed Not Available Not Available Not Available hydralazine 50 mg tablet 1 tab PO BID 10/02 completed Not Available Not Available Not Available Enteric Coated Aspirin 81 mg tablet,shelly yed release 1 tab Po QAM 2020 active Not Available Not Available Not Avai lable fluticasone propionate 50 mcg/actuati on nasal spray,suspe nsion USE 1 SPRAY NASALLY EVERY DAY. GENERIC EQUIVALEN T FOR FLONASE 03/14 completed Not Available Not Available Not Available Tylenol Extra Strength 500 mg tablet Take 1 tablet every 8 hours by oral route. 2019 active Not Available Not Available Not Avai lable Mucinex DM 30 mg-600 mg tablet,exte nded release 12 hr Take 1 tablet every 12 hours by oral route. 03/14 completed Not Available Not Available Not Available hydrochloro thiazide 12.5 mg tablet TAKE 1 TABLET EVERY MORNING active Not Available Not Available No t Available diclofenac 1 % topical gel APPLY 2 GRAMS TO THE AFFECTED AREA(S) ON THE SKIN 4 TIMES DAILY active Not Available Not Available No t Available Zyrtec 10 mg capsule Take 1 capsule every day by oral route at bedtime. 2018 active Not Available Not Available Not Avai lable Vitals Date Recorded Body height Respiratory rate Body temperature Body mass index (BMI) Body weight Heart rate Provider Name and Address Organization Details Last Updated DateTime 3 187.96 cm 18 /min 97.7 [degF] 32 kg/m2 330592. 3 g 65 /min Lorena Franz [facility] 3 13:03:41 Date Recorded Systolic blood pressure Diastolic blood pressure Provider Name and Address Organization Details Last Updated DateTime 04/17/2023 133 mm[Hg] 81 mm[Hg] Yvrose Neal MD [address], [place], [address] 04/17/2023 13:22:56 Date Recorded Body height Body temperature Respiratory rate Body mass index (BMI) Body weight Heart rate Provider Name and Address Organization Details Last Updated DateTime 4 187.96 cm 97.5 [degF] 18 /min 33 kg/m2 230962. 24 g 64 /min Jocelyne Cheryl [facility] 4 13:13:31 Date Recorded Systolic blood pressure Diastolic blood pressure Provider Name and Address Organization Details Last Updated DateTime 07/24/2023 154 mm[Hg] 85 mm[Hg] Yvrose Neal MD [address], [place], [address] 07/24/2023 13:39:56 Date Recorded Body height Body mass index (BMI) Body weight Respiratory rate Body temperature Heart rate Systolic blood pressure Diastolic blood pressure Provider Name and Address Organization Details Last Updated DateTime 4 187.96 cm 33 kg/m2 070518. 24 g 18 /min 97.6 [degF] 61 /min 164 mm[Hg] 91 mm[Hg] Jocelyne Luna [facility] 4 11:35:27 Date Recorded Body temperature Respiratory rate Body height Body mass index (BMI) Body weight Heart rate Provider Name and Address Organization Details Last Updated DateTime 4 98.2 [degF] 18 /min 187.96 cm 33.8 kg/m2 929445. 79 g 55 /min Jocelyne Luna [facility] 4 15:13:19 Date Recorded Systolic blood pressure Diastolic blood pressure Provider Name and Address Organization Details Last Updated DateTime 02/12/2024 141 mm[Hg] 75 mm[Hg] Yvrose Neal MD [address], [place], [address] 02/12/2024 15:38:29 Date Recorded Body height Body mass index (BMI) Body weight Body temperature Respiratory rate Heart rate Provider Name and Address Organization Details Last Updated DateTime 4 187.96 cm 32.7 kg/m2 536938. 05 g 97.6 [degF] 18 /min 62 /min Jocelyne Luna [facility] 13:01:11 Date Recorded Systolic blood pressure Diastolic blood pressure Provider Name and Address Organization Details Last Updated DateTime 05/14/2024 133 mm[Hg] 81 mm[Hg] Yvrose Neal MD [address], [place], [address], [facility] 05/14/2024 13:25:55 Social History Question Answer Notes LastModified by Organizat ion Details LastModified Time Tobacco Smoking Status Never Smoker Desire Deutsch jayne, [facility] 09/01/2017 15:44:01 Do You Have An Advance Directive? No [email or web address] Information n ot available 12/01/2017 What Is Your Level Of Alcohol Consumption? 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 No Information n ot available 09/02/2019 In The 14 Days Before Symptom Onset, Have You Had Close Contact With A Person Who Is Under Investigation For COVID-19 While That Person Was Ill? No Information not available 09/02/2019 Have You Been To An Area Known To Be High Risk For COVID-19? No Information not available 09/02/2019 Are You Currently Employed? No Information not available 09/01/2017 Which Illicit Or Recreational Drugs Have You Used? No Information not available 09/01/2017 Have You Directly Handled Bats, Rodents, Or Primates From Ebola Endemic Areas? No Information not available 09/02/2019 Have You Processed Blood Or Body Fluids From An Ebola Virus Disease Patient Without Appropriate PPE? No Information not available 09/02/2019 Have You Had Household Contact With An Ebola Virus Disease Patient? No Information not available 09/02/2019 Have You Had Direct Contact With A Body In An Ebola-affected Area Without Appropriate PPE? No Information not available 09/02/2019 Have You Had Percutaneous (e.g. Needle Stick) Or Mucous Membrane Exposure To Blood Or Body Fluids From An Ebola Virus Disease Patient? No Information not available 09/02/2019 Have You Had Other Close Contact With An Ebola Virus Disease Patient In Health Care Facilities Or Community Settings? No Information not available 09/02/2019 Do You Reside In Or Have You Traveled To An Area Where Ebola Virus Transmission Is Active? 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 No Information not available 06/01/2020 High Number Of Sexual Partners No Information not available 06/01/2020 History Of Inconsistent/no Condom Use No Information not available 06/01/2020 Live Alone Or With Others? With Others Information not available 09/01/2017 Marital Status Informatio n not available 09/01/2017 What Was The Date Of Your Most Recent Tobacco Screening? 06/26/2021 Information not available 06/26/2021 Mother With HIV? No Informat ion not available 06/01/2020 Performs Monthly Self-breast Exam? Yes Information no t available 06/01/2020 Seat Belts Used Routinely Yes Information not available 06/01/2020 Sexual Partner Has HIV? No Information not available 06/01/2020 Sexual Partner Uses IV Drugs? No Information not available 06/01/2020 Smoke Alarm In Home Yes Information not available 06/01/2020 Do You Use Sunscreen Routinely? No Information not available 06/01/2020 Have You Used IV Drugs? No Information not available 06/01/2020 Sex: Unknown Functional Status Question Answer Note LastModified by Organization D etails LastModified Time Are you able to care for yourself? Yes [facility] Information n ot available 09/01/2017 Mental Status None recorded. Family History Relationship Description Onset Age of this Age Resolved Age Notes LastModified by Organization Details LastModified Time Mother Disorder of thyroid gland 70 [email or web address] Not available 2017 15:51:33 Mother Cerebrovascu lar accident [email or web address] Not available 15:51:48 Father Chronic obstructive pulmonary disease 69 [email or web address] Not available 2017 15:52:53 Medical History No medical history recorded. Gynecological History Statement/Question Response Date of Last Mammogram 02/03/2020 Obstetrics History GPAL:G 0 P 0 0 0 0 Immunizations Vaccine Type Date Status Note Provider Nam e and Address Organization Details Recorded Time Td(adult) unspecified formulation 04/18/2017 completed Yvrose Neal MD [address], [place], [address], [facility] 09/01/2017 15:59:06 Past Encounters Encounter ID Performer Location Encounter Start Date Encounter Closed Date Diagnosis/Indication Diagnosis SNOMED-CT Code Diagnosis ICD10 Code Diagnosis Note [id number] Yvrose Neal MD [employer] [facility], [facility] [address] [place] [address] 09/01/2017 14:35:40 09/01/2017 16:15:59 Benign hypertension 99405522 I10 add norvasc 2.5 qam EKG:left v entricle hypertrophy 421364155 R94.31 on EKG today Screening for malignant neoplasm of cervix 152537138 Z12.4 per pt Had PAP 05/2017 Screening mammography 24 709097 Z12.31 Overweight 028784129 E66 .3 Menopause 680332428 Z78. 0 Screening for malignant neoplasm of colon 912083293 Z12.11 Active or passive immunization 264131054 Z23 Viral screening 20254544 4 Z11.59 Cholesterol screening 27 8126254 Z13.220 Osteoarthr itis of knee 877537408 M17.11 [id number] Yvrose Neal MD [employer] [facility], [facility] [address] [place] [address] 12/01/2017 15:49:29 12/01/2017 16:49:51 Benign hypertension 88410492 I10 increase norvasc 5 qam Mammography abnormal 168 273436 R92.8 Overweight 931350905 E66 .3 Osteoarthr itis of knee 043355532 M17.11 Screening for malignant neoplasm of cervix 804931788 Z12.4 per pt Had PAP 05/2017 Screening for malignant neoplasm of colon 428037759 Z12.11 [id number] Yvrose Neal MD [employer] [facility], [facility] [address] [place] [address] 03/03/2018 14:44:34 03/03/2018 15:29:56 Benign hypertension 55425117 I10 per pt had optometry eval 2018did not take meds today , recheck BP 2 weeks Osteoarthr itis of knee 356854017 M17.11 fair control with tylenol 500 TID Body mass index 30+ - obesity 364646549 Z68.39 education Screening for malignant neoplasm of colon 953379714 Z12.11 Active or passive immunization 392691618 Z23 Mammography abnormal 168 676576 R92.8 education , pls do Lt diagnostic and U/S , R/O Ca Allergic r hinitis caused by pollen 36224825 J30.1 [id number] Yvrose Neal MD [employer] [facility] [address] [address] [place] [address] 06/03/2018 12:09:35 06/03/2018 13:11:51 Benign hypertension [id number] I10 per pt had optometry eval 2018did not take meds today , recheck BP 2 weeks Osteoarthr itis of knee 686917108 M17.11 fair control with tylenol 500 TID Body mass index 30+ - obesity 268251591 Z68.39 education Screening for malignant neoplasm of colon 198555662 Z12.11 Active or passive immunization 668736638 Z23 Mammography abnormal 168 296519 R92.8 education , pls do Lt diagnostic and U/S , R/O Ca Allergic r hinitis caused by pollen 84698854 J30.1 [id number] Yvrose Neal MD [employer] [facility] [address] [place] [address] 09/02/2018 11:44:42 09/02/2018 12:45:36 Benign hypertension 59388809 I10 per pt had optometry eval 2018did not take meds today , recheck BP 2 weeks Body mass index 30+ - obesity 835213643 Z68.31 education Osteoarthr itis of knee 079298557 M17.11 fair control with tylenol 500 TID Screening mammography 24 360510 Z12.31 last mammogram 12/2017 Screening for malignant neoplasm of cervix 242961331 Z12.4 per pt Had PAP 05/2017 Screening for malignant neoplasm of colon 492283759 Z12.11 Adult heal th examination 878046334 Z00.00 Active or passive immunization 982491464 Z23 [id number] Yvrose Neal MD [facility] [address] [place] [address] 03/03/2019 11:19:33 03/03/2019 12:01:40 Benign hypertension 07582812 I10 per pt had optometry eval 2018add HCTZ 12.5 qam , recheck BP 2 weeks Body mass index 30+ - obesity 942656674 Z68.31 education Osteoarthr itis of knee 557654222 M17.11 fair control with tylenol 500 TID Mixed hyperlipidemia 267 455212 E78.2 Screening mammography 24 942583 Z12.31 last mammogram 12/2017 Mammography abnormal 168 695979 R92.8 education , pls do Lt diagnostic and U/S , R/O Ca Screening for malignant neoplasm of cervix 334425240 Z12.4 per pt Had PAP 05/2017 Screening for malignant neoplasm of colon 874816330 Z12.11 Menopause 178101988 Z78. 0 Active or passive immunization 673412833 Z23 [id number] Yvrose Neal MD [facility] [address] [place] [address] 06/03/2019 11:08:11 06/03/2019 11:43:43 Benign hypertension 20299726 I10 per pt had optometry eval 2018add hydralazin e 25 , recheck BP 2 weekswill call 30 days to local pharm Body mass index 30+ - obesity 307007643 Z68.31 education Osteoarthr itis of knee 677496605 M17.11 fair control with tylenol 500 TID Mixed hyperlipidemia 267 677342 E78.2 Menopause 188947625 Z78. 0 Screening mammography 24 086617 Z12.31 last mammogram 05/06/19 @ [facility] Screening for malignant neoplasm of cervix 486598707 Z12.4 per pt Had PAP 05/06/19 Screening for malignant neoplasm of colon 585667627 Z12.11 Active or passive immunization 902300243 Z23 [id number] Yvrose Neal MD [facility] [address] [place] [address] 09/02/2019 10:53:00 09/02/2019 11:29:01 Benign hypertension 53857910 I10 per pt had optometry eval 2018increa se hydralazin e 50 , recheck BP 2 weeks Mixed hyperlipidemia 267 360107 E78.2 last LDL 06/03/19 Menopause 782972026 Z78. 0 Body mass index 30+ - obesity 611274316 Z68.31 education Screening mammography 24 272849 Z12.31 last mammogram 05/06/19 @ [facility] Screening for malignant neoplasm of cervix 506000735 Z12.4 per pt Had PAP 05/06/19 Screening for malignant neoplasm of colon 652266091 Z12.11 Active or passive immunization 666151567 Z23 [id number] Yvrose Neal MD [facility] [address] [place] [address] 12/02/2019 10:58:23 12/02/2019 11:29:41 Adult health examination 653185330 Z00.01 Benign hypertension 1072 5009 I10 per pt had optometry eval 10/19/19 @ [place] Body mass index 30+ - obesity 660840754 Z68.31 education Menopause 635563202 Z78. 0 last DEXA 09/02/19 osteopenia Mixed hyperlipidemia 267 836651 E78.2 last LDL 06/03/19 above goal , recheck Osteoarthr itis of knee 535627369 M17.11 fair control with tylenol 500 TID Screening mammography 24 304617 Z12.31 last mammogram 05/06/19 @ [facility] Screening for malignant neoplasm of cervix 783967653 Z12.4 per pt Had PAP 05/06/19 Screening for malignant neoplasm of colon 886570085 Z12.11 Active or passive immunization 839679932 Z23 [id number] Yvrose Neal MD [facility] [address] [place] [address] 06/01/2020 09:59:39 06/01/2020 11:03:02 Benign hypertension 93949792 I10 per pt had optometry eval 10/19/[address] [facility] EKG 12/02/19 Body mass index 30+ - obesity 745076053 Z68.31 education Mixed hyperlipidemia 267 037507 E78.2 last LDL 12/14/19 above goal , add atorva Osteoarthr itis of knee 206483537 M17.11 fair control with tylenol 500 TID Menopause 613375991 Z78. 0 last DEXA 09/02/19 osteopenia Screening mammography 24 678767 Z12.31 last mammogram 02/03/20 @ [facility] Screening for malignant neoplasm of cervix 413571871 Z12.4 per pt Had PAP 05/06/19 Screening for malignant neoplasm of colon 377153346 Z12.11 Active or passive immunization 275830912 Z23 Body mass index 25-29 - overweight 830587701 Z68.29 educationl ost 10 LBS on diet and exercise [id number] Yvrose Neal MD [facility] [address] [place] [address] 12/12/2020 14:53:59 12/12/2020 16:01:38 Adult health examination 039570622 Z00.01 Benign hypertension 1072 5009 I10 per pt had optometry eval 10/18/[address] @ [facility] EKG 12/02/19 Body mass index 25-29 - overweight 229126552 Z68.29 educationo n diet and exercise Menopause 813180107 Z78. 0 last DEXA 09/02/19 osteopenia Mixed hyperlipidemia 267 392290 E78.2 last LDL 06/01/20 above goal , cont' atorva Osteoarthr itis of knee 874376756 M17.11 fair control with tylenol 500 TID Congestion of nasal sinus 27388497 R09.81 Screening mammography 24 081588 Z12.31 last mammogram 02/03/20 @ [facility] Screening for malignant neoplasm of cervix 308833413 Z12.4 per pt Had PAP 05/06/19 Screening for malignant neoplasm of colon 585109719 Z12.11 Active or passive immunization 549489980 Z23 COVID Osteopenia 555017536 M85 .80 last DEXA 09/02/19 [id number] Yvrose Neal MD [facility] [address] [place] [address] 03/14/2021 11:15:56 03/14/2021 12:07:39 Benign hypertension 50198613 I10 per pt had optometry eval 10/18/[address] [facility] 12/14/20 Body mass index 30+ - obesity 258565008 Z68.30 educationo n diet and exercise Mixed hyperlipidemia 267 280103 E78.2 last LDL 06/01/20 above goal , cont' atorva Menopause 886951119 Z78. 0 last DEXA 09/02/19 osteopenia Osteoarthr itis of knee 315993898 M17.11 fair control with tylenol 500 TID Electrocar diogram abnormal 235590469 R94.31 Screening mammography 24 509814 Z12.31 last mammogram 02/03/20 @ [facility] Screening for malignant neoplasm of cervix 148618028 Z12.4 per pt Had PAP 05/06/19 Screening for malignant neoplasm of colon 792146573 Z12.11 Active or passive immunization 445295235 Z23 COVID and flu shot Loss of hair 994180842 L 65.9 [id number] Yvrose Neal MD [facility] [address] [place] [address] 06/26/2021 13:54:53 06/26/2021 14:47:46 Benign hypertension 52341017 I10 per pt had optometry eval 10/18/[address] @ [facility] 12/14/20 Body mass index 30+ - obesity 086351632 Z68.30 educationo n diet and exercise Mixed hyperlipidemia 267 694678 E78.2 last LDL 06/01/20 above goal , cont' atorva Osteopenia 055275533 M85 .80 last DEXA 09/02/19las t Vit D 12/20/20 Osteoarthr itis of knee 676348925 M17.11 fair control with tylenol 500 TID Electrocar diogram abnormal 766535995 R94.31 Screening mammography 24 284129 Z12.31 last mammogram 02/03/20 @ [facility] Screening for malignant neoplasm of cervix 021641429 Z12.4 per pt Had PAP 02/2021 Screening for malignant neoplasm of colon 021242293 Z12.11 Active or passive immunization 874987987 Z23 COVID and flu shot Localized eruption of skin 425382259 R21 [id number] Yvrose Neal MD [facility], [facility] [address] [place] [address] 10/02/2021 14:05:03 10/02/2021 14:36:18 Mixed hyperlipidemia 692778937 E78.2 last LDL 07/03/21 above goal , cont' atorva Body mass index 30+ - obesity 304351856 Z68.30 educationo n diet and exercise Benign hypertension 1072 5009 I10 per pt had optometry eval 10/18/[address] @ [facility] 12/14/20 Electrocar diogram abnormal 057207863 R94.31 Menopause 651047939 Z78. 0 last DEXA 09/02/19 osteopenia Osteoarthr itis of knee 010363288 M17.11 fair control with tylenol 500 TID Osteopenia 646797835 M85 .80 last DEXA 09/02/19las t Vit D 12/20/20 Screening mammography 24 699095 Z12.31 last mammogram 06/2021 @ [facility] Screening for malignant neoplasm of cervix 852056857 Z12.4 per pt Had PAP 02/2021 Screening for malignant neoplasm of colon 846401642 Z12.11 Active or passive immunization 411486139 Z23 COVID and flu shot [id number] Yvrose Neal MD [facility] [address] [place] [address] 01/14/2022 14:14:40 01/14/2022 15:56:27 Adult health examination 085141838 Z00.01 Benign hypertension 1072 5009 I10 per pt had optometry eval 10/18/2020 @ [facility] 12/14/20 Body mass index 30+ - obesity 954690105 Z68.30 educationl ost 10 LBS on diet and exercise Electrocar diogram abnormal 105607903 R94.31 seen cardiology , will try to get note Mixed hyperlipidemia 267 302278 E78.2 last LDL 07/03/21 above goal , cont' atorva Osteoarthr itis of knee 013786979 M17.11 fair control with tylenol 500 TID Osteopenia 401756079 M85 .80 last DEXA 09/02/19las t Vit D 12/20/20 Screening mammography 24 346720 Z12.31 last mammogram 06/2021 @ [facility] Screening for malignant neoplasm of cervix 786226593 Z12.4 per pt Had PAP 02/2021 Screening for malignant neoplasm of colon 518400946 Z12.11 Active or passive immunization 440541515 Z23 COVID and flu shot Advance di rective discussed with patient 772075886 Z71.89 education [id number] Yvrose Neal MD [employer] [address] [place] [address] 04/15/2022 12:49:07 04/15/2022 13:37:06 Benign hypertension 87900744 I10 per pt had optometry eval 10/18/[address] @ [facility] 01/14/22 Body mass index 30+ - obesity 387679230 Z68.30 educationo n diet and exercise Electrocar diogram abnormal 762899733 R94.31 seen cardiology Mixed hyperlipidemia 267 072267 E78.2 last LDL 07/03/21 above goal , cont' atorva Osteoarthr itis of knee 617421679 M17.11 fair control with tylenol 500 TID Screening mammography 24 431701 Z12.31 last mammogram 06/2021 @ [facility] Screening for malignant neoplasm of cervix 472945767 Z12.4 per pt Had PAP 02/2021 Screening for malignant neoplasm of colon 917565640 Z12.11 Active or passive immunization 264950598 Z23 COVID and flu shot [id number] Yvrose Neal MD [employer] [address] [place] [address] 07/16/2022 12:00:16 07/16/2022 13:02:16 Benign hypertension 53654755 I10 per pt had optometry eval 10/2021 @ [facility] 01/14/22 Body mass index 30+ - obesity 236005182 Z68.30 educationo n diet and exercise Mixed hyperlipidemia 267 748634 E78.2 last LDL 04/24/22 above goal , cont' atorva Osteoarthr itis of knee 300530438 M17.11 fair control with tylenol 500 TID Screening mammography 24 067720 Z12.31 last mammogram 06/2021 @ [facility] Screening for malignant neoplasm of cervix 151509573 Z12.4 per pt Had PAP 02/2021 Screening for malignant neoplasm of colon 222192722 Z12.11 last C scope 04/2022 , good for 10 years Active or passive immunization 477623449 Z23 decline COVID and flu shot Electrocar diogram abnormal 097580892 R94.31 seen cardiology [id number] Yvrose Neal MD [employer] [address] [place] [address] 10/15/2022 12:21:57 10/15/2022 13:10:30 Benign hypertension 49969182 I10 per pt had optometry eval 10/2021 @ [facility] 01/14/22 Mixed hyperlipidemia 267 083160 E78.2 last LDL 04/24/22 above goal , cont' atorva Body mass index 30+ - obesity 052647470 Z68.30 educationo n diet and exercise Electrocar diogram abnormal 773368473 R94.31 seen cardiology Screening mammography 24 755854 Z12.31 last mammogram 06/2021 @ [facility] Menopause 120060608 Z78. 0 last DEXA 09/02/19las t Vit D 12/20/20 Screening for malignant neoplasm of cervix 507812831 Z12.4 per pt Had PAP 02/2021 Screening for malignant neoplasm of colon 658508430 Z12.11 last C scope 04/2022 , good for 10 years Active or passive immunization 914983445 Z23 decline COVID and flu shot Viral screening 65545181 4 Z11.59 Long-term drug therapy 621743818 Z79.899 metformin [id number] Yvrose Neal MD [facility] [address] [place] [address] 01/15/2023 12:27:01 01/15/2023 13:12:03 Adult health examination 065928860 Z00.01 Benign hypertension 1072 5009 I10 per pt had optometry eval 10/2021 @ [facility] 01/14/22 Body mass index 30+ - obesity 329912708 Z68.30 educationo n diet and exercise Electrocar diogram abnormal 396940588 R94.31 seen cardiology Mixed hyperlipidemia 267 024302 E78.2 last LDL 04/24/22 above goal , cont' atorva Osteoarthr itis of knee 081139570 M17.11 fair control with tylenol 500 TID Menopause 592608762 Z78. 0 last DEXA 09/02/19las t Vit D 12/20/20 Screening mammography 24 184365 Z12.31 last mammogram 12/25/22 @ [facility] Screening for malignant neoplasm of cervix 441149293 Z12.4 per pt Had PAP 11/2022 Screening for malignant neoplasm of colon 137197205 Z12.11 last C scope 04/2022 , good for 10 years Active or passive immunization 629459930 Z23 decline COVID and flu shot Advance di rective discussed with patient 547156262 Z71.89 education [id number] Yvrose Neal MD [facility] [address] [place] [address] 04/17/2023 12:28:48 04/17/2023 13:38:29 Benign hypertension 72896509 I10 per pt had optometry eval 10/2021 @ [facility] 01/15/23 Body mass index 30+ - obesity 208951242 Z68.30 educationo n diet and exercise Electrocar diogram abnormal 346983353 R94.31 seen cardiology Mixed hyperlipidemia 267 529419 E78.2 last LDL 01/15/23 above goal , increase atorva Menopause 101799080 Z78. 0 last DEXA 09/02/19las t Vit D 12/20/20 Screening mammography 24 270847 Z12.31 last mammogram 12/25/22 @ [facility] Screening for malignant neoplasm of cervix 892043295 Z12.4 per pt Had PAP 11/2022 Screening for malignant neoplasm of colon 462362047 Z12.11 last C scope 04/2022 , good for 10 years Active or passive immunization 619579630 Z23 decline COVID , RSV , pneumonia and flu shot [id number] Yvrose Neal MD [facility] [address] [place] [address] 07/24/2023 12:26:30 07/24/2023 13:46:13 Benign hypertension 29080907 I10 per pt had optometry eval 10/2021 @ [facility] 01/15/23on high side today , pls take your BP meds on reg basisBP 2 weeks Body mass index 30+ - obesity 413065760 Z68.30 educationo n diet and exercise Mixed hyperlipidemia 267 734113 E78.2 last LDL 01/15/23 above goal , increase atorva Electrocar diogram abnormal 550455325 R94.31 seen cardiology Menopause 038825463 Z78. 0 last DEXA 09/02/19las t Vit D 01/15/23 Long-term drug therapy 090018823 Z79.899 metformin , statin Screening mammography 24 954304 Z12.31 last mammogram 12/25/22 @ [facility] Screening for malignant neoplasm of cervix 697957116 Z12.4 per pt Had PAP 11/2022 Screening for malignant neoplasm of colon 547422133 Z12.11 last C scope 04/2022 , good for 10 years Active or passive immunization 979986497 Z23 decline COVID , RSV , pneumonia and flu shot Chronic constipation 236 040969 K59.09 [id number] Yvrose Neal MD [facility] [address] [place] [address] 10/30/2023 11:09:36 10/30/2023 11:59:32 Benign hypertension 27673802 I10 per pt had optometry eval 07/31/23 @ [facility] 01/15/23on high side today ,increase amlodipine to 10BP 2 weeks Body mass index 30+ - obesity 182537074 Z68.30 educationo n diet and exercise Chronic constipation 236 565976 K59.09 better Electrocar diogram abnormal 490722540 R94.31 seen cardiology Long-term drug therapy 918378962 Z79.899 metformin , statin Mixed hyperlipidemia 267 972991 E78.2 last LDL 07/24/23 above goal , Menopause 287367386 Z78. 0 last DEXA 09/02/19las t Vit D 12/20/20 Screening mammography 24 856655 Z12.31 last mammogram 12/25/22 @ [facility] Screening for malignant neoplasm of cervix 416259188 Z12.4 per pt Had PAP 11/2022 Screening for malignant neoplasm of colon 472058086 Z12.11 last C scope 04/2022 , good for 10 years Active or passive immunization 149438037 Z23 decline COVID , RSV , pneumonia and flu shot [id number] Yvrose Neal MD [facility], [facility] [address] [place] [address] 02/12/2024 15:04:18 02/12/2024 15:43:36 Adult health examination 540692579 Z00.01 Benign hypertension 1072 5009 I10 per pt had optometry eval 07/31/[address] @ [facility] 11/30/23on high side today ,BP 2 weeks Body mass index 30+ - obesity 612911566 Z68.30 educationo n diet and exercise Chronic constipation 236 707399 K59.09 better Electrocar diogram abnormal 498882785 R94.31 seen cardiology , -ve stress test 11/30/23 Long-term drug therapy 070412643 Z79.899 metformin , statin Mixed hyperlipidemia 267 444702 E78.2 last LDL 07/24/23 above goal , Osteoarthr itis of knee 983694152 M17.11 fair control with tylenol 500 TID Osteopenia 487498741 M85 .80 last DEXA 09/02/19las t Vit D 12/20/20 Menopause 451441614 Z78. 0 last DEXA 09/02/19las t Vit D 01/15/23 Screening mammography 24 850214 Z12.31 last mammogram 12/25/22 @ [facility] Screening for malignant neoplasm of cervix 253306235 Z12.4 per pt Had PAP 11/2022 Screening for malignant neoplasm of colon 081205731 Z12.11 last C scope 04/2022 , good for 10 years Active or passive immunization 677369697 Z23 decline COVID , RSV , pneumonia and flu shot [id number] Yvrose Neal MD [facility], [facility] [address] [place] [address] 05/14/2024 12:11:29 05/14/2024 13:33:54 Benign hypertension 32418582 I10 per pt had optometry eval 07/31/[address] [facility] EKG 11/30/23on high side today ,BP 2 weeks Body mass index 30+ - obesity 149457662 Z68.30 educationd own 8 LBs on diet and exercise Electrocar diogram abnormal 586809419 R94.31 seen cardiology , -ve stress test 11/30/23 Long-term drug therapy 225488466 Z79.899 metformin , statin Mixed hyperlipidemia 267 828475 E78.2 last LDL 07/24/23 above goal , Menopause 445915102 Z78. 0 last DEXA 09/02/19las t Vit D 01/15/23 Screening mammography 24 799485 Z12.31 last mammogram 12/25/22 @ [facility] Screening for malignant neoplasm of cervix 133213634 Z12.4 per pt Had PAP 11/2022 Screening for malignant neoplasm of colon 023325939 Z12.11 last C scope 04/2022 , good for 10 years Active or passive immunization 179089947 Z23 decline COVID , RSV , pneumonia and flu shot Health Concerns Section Related Observation LastModified by Organization Detai ls LastModified Time None Recorded Concern Status LastModified by Organization Details LastModified Time None Recorded Advance Directives Directive N: Payers Encounter Date Sequence Insurance Name Policy Number Policy Gaona Covered Member ID Gaona Member ID Guarantor Name 04/17/2023 1 [place] [id number] Pio Mcdowell [id number] Sania Mcdowell 07/24/2023 1 [place] [id number] Pio Mcdowell [id number] Sania Mcdowell 10/30/2023 1 [place] [id number] Pio Mcdowell [id number] Sania Mcdowell 02/12/2024 1 [place] [id number] Pio Mcdowell [id number] Sania Mcdowell 05/14/2024 1 [place] [id number] Pio Mcdowell [id number] Sania Mcdowell Notes Date Note Type Note Provider Name and Address Organization Details Recorded Time 04/17/2023 text/html Hypertension F/UReported bypatient.Medications: taking medications as directed; no side effects from medication Lifestyle:regular exercise; limiting/avoiding salt; compliant with low salt diet Associated Symptoms:no dizziness; no lightheadedness; no chest pain; no shortness of breath; no palpitations; no edema; no calf pain with exertion; no headache Yvrose Neal MD [address] [place] [address] [address], [place], [address], [facility] 04/17/2023 13:23:48 07/24/2023 text/html Hypertension F/UReported bypatient.Medications: taking medications as directed; no side effects from medication Lifestyle:regular exercise; limiting/avoiding salt; compliant with low salt diet Associated Symptoms:no dizziness; no lightheadedness; no chest pain; no shortness of breath; no palpitations; no edema; no calf pain with exertion; no headache Yvrose Neal MD [address] [facility] [address], [place], [address], [facility] 07/24/2023 13:41:41 10/30/2023 text/html Hypertension F/UReported bypatient.Medications: taking medications as directed; no side effects from medication Lifestyle:regular exercise; limiting/avoiding salt; compliant with low salt diet Associated Symptoms:no dizziness; no lightheadedness; no chest pain; no shortness of breath; no palpitations; no edema; no calf pain with exertion; no headache Yvrose Neal MD [address] [facility] [address], [place], [address], [facility] 10/30/2023 11:54:52 02/12/2024 text/html Hypertension F/UReported bypatient.Medications: taking medications as directed; no side effects from medication Lifestyle:regular exercise; limiting/avoiding salt; compliant with low salt diet Associated Symptoms:no dizziness; no lightheadedness; no chest pain; no shortness of breath; no palpitations; no edema; no calf pain with exertion; no headacheMedicare Annual Wellness VisitReported bypatient.Diet and Nutrition:healthy diet Fracture Risk:no history of fractures; no recent explained fracture; no sudden unexplained fractures; no previous musculoskeletal injuries Physical Activity:recent increase in physical activity; good physical condition; discussed exercise habits Depression Risk:never feels sad, empty, or tearful; no loss of interest in activities; no significant changes in weight; no sleep disturbances or insomnia; no agitation; no loss of energy; no feelings of worthlessness or guilt; no thoughts of suicide; no history of depression; no history of mood disorders Orientation:no disorientation to time; no disorientation to date; no disorientation to place Concentration and Memory:no decreased concentrating ability; no memory lapses or loss; does not forget words Speech/Motor difficulties:no speech difficulties; no difficulty expressing formulated concepts; no difficulty with fine manipulative tasks; no difficulty writing/copying; no slowed reaction time; does not knock things over when trying to pick them up Hearing:no loss of hearing Vision:no vision problems Activities of Daily Living:able to bathe with limited or no assistance; able to contol urination and bowels; able to dress with limited or no assistance; able to feed self with limited or no assistance; able to get out of chair or bed with limited or no assistance; able to groom with limited or no assistance; able to toilet with limited or no assistance Instrumental Activities of Daily Living:able to do house work with limited or no assistance; able to grocery shop with limited or no assistance; able to manage medications with limited or no assistance; able to manage money with limited or no assistance; able to prepare meals with limited or no assistance; able to use the phone with limited or no assistance Falls Risk Assessment:no frequent falls while walking; no fall in the past year; no fall since last visit; no dizziness/vertigo Home Safety:use of seatbelts; no vision or hearing loss while driving Yvrose Neal MD [address], [place], [address], [facility] 02/12/2024 15:41:08 05/14/2024 text/html Hypertension F/UReported bypatient.Medications: taking medications as directed; no side effects from medication Lifestyle:regular exercise; limiting/avoiding salt; compliant with low salt diet Associated Symptoms:no dizziness; no lightheadedness; no chest pain; no shortness of breath; no palpitations; no edema; no calf pain with exertion; no headache Yvrose Neal MD [address], [place], [address], [facility] [facility] 05/14/2024 13:29:11 OBGyn Episode No OBEpisode recorded.
--- OUTSIDE RECORDS SUMMARY | 2024-08-12 11:00 | XMS_ITS | Data Portability ---
Author Organization [facility] , [facility] Address [address] [place] [address] Assessment No assessment recorded. Plan of Treatment Reminders Order Date Submit Date Provider Last Modified By Organization Details Last Modified Time Details Appointments None recorded. Lab None recorded. Referral None recorded. Procedures None recorded. Surgeries None recorded. Imaging MAMMO, screening, digital, bilateral 2022 023 [email or web address] Not available 16:37:50 bone density 2022 023 [email or web address] Not available 16:37:50 Medication Orders None recorded. Patient TargetsNo targets recorded. Patient Instructions Encounter Date Encounter Id Patient Instructions Last Modified By Organization Details Last Modified Time 11/05/2022 [id number] Patient Health Questionnaire-9* kbritsch Not available 11/05/2022 17:38:40 abuse/domestic violence education Not available 11/05/2022 11:04:46 eating healthy foods: care instructions Not available 11/05/2022 11:04:46 weight managemen t education Not available 11/05/2022 11:04:46 Reason for Referral None Reported. Problems Name Problem SNOMED Code Status Onset Date Resolution Date Notes Provider Name and Address Organization Details Recorded Time Screening procedure Active 2017 Encounter for screening for malignant neoplasm of colon; Progress: Stable Added By: Nicole Mcdonald Add to Current Problems: YES ProblemSta tus: Current Not Available [facility] 2 15:45:55 Acute vaginitis 92927078 Active 2020 Acute vaginitis; Progress: Stable Added By: Gwen Vargas Add to Current Problems: YES ProblemSta tus: Current Not Available [facility] 2 15:45:55 Screening for malignant neoplasm of colon Active 2017 Screening for cancer of colon; Location: None Progress: Stable Added By: Nicole Mcdonald Add to Current Problems: YES ProblemSta tus: Current Not Available [facility] 2 15:45:55 Screening for malignant neoplasm of cervix Active 2020 Encounter for screening for malignant neoplasm of cervix; Progress: Stable Added By: Amber Valdez Add to Current Problems: YES ProblemSta tus: Current Not Available [facility] 2 15:45:55 Sampling of vagina for Papanicola ou smear Active 2020 Encounter for gynecologi jodie examinatio n (general) (routine) without abnormal findings; Progress: Stable Added By: Amber Valdez Add to Current Problems: YES ProblemSta tus: Current Not Available [facility] 2 15:45:55 Problem Notes None recorded. Procedures Surgical History Date Name Laterality Status Provider Name and Address Organization Details Recorded Time 05/07/20 22 Date of Last Colonoscopy completed RELEASEIF 11/05/2022 10:44:54 05/19/19 22 Most Recent Mammogram completed RELEASEIF 11/05/2022 10:44:29 03/26/20 21 Date of Last Pap Smear completed RELEASEIF 11/05/2022 10:43:42 ligation of bilateral fallopian tubes completed RELEASEIF 11/05/2022 10:45:39 Imaging Results None recorded. Procedure Notes None recorded. Medical Equipment None Reported. Allergies Allergen ID Allergen Name Allergen Category Reaction Reaction Severity Criticality Documentation Date Start Date Code Code System Note Provider Name and Address Organization Details Recorded Time 087263 Flagyl medicatio n Not available Not available Not available 03/09/20212017 6 RxNorm Sever ity: Moder ate; Not Available Not Available Not Available Medications Name Sig Start Date Stop Date Status Note LastModified by Organization Details LastModified Time metformin 500 mg tablet active Not Available Not Available Not Available atorvasta tin 10 mg tablet active Not Available Not Available Not Available Diflucan 150 mg tablet take 1 tablet (150 mg) by oral route today. If sx persist repeat dose in 3 days 11/05 completed Diflucan 150 mg oral tablet RxNorm: 686803 Allow Substitu tion: True Refill Denied: No Edited by: Gwen Calderon ) on 03/26/20 Stopped by: Gwen Calderon ) on Not Available Not Available Not Available amlodipin e 5 mg tablet active Not Available Not Available Not Available aspirin 81 mg tablet,de layed release take 1 tablet (81 mg) by oral route once daily active aspirin 81 mg oral tablet, delayed release (enteric coated) RxNorm: 859733 Allow Substitu tion: False Refill Denied: No Refill DateOccu rred: 03/26/20 Edited by: Gwen Calderon ) on 03/26/20 Stopped by: Gwen Calderon ) on Not Available Not Available Not Available amlodipin e 10 mg tablet take 1 tablet (10 mg) by oral route once daily 11/05 completed amLODIPi ne 10 mg oral tablet RxNorm: 644693 Allow Substitu tion: False Refill Denied: No Refill DateOccu rred: 03/26/20 Edited by: Gwen Calderon ) on 03/26/20 Stopped by: Gwen Calderon ) on Not Available Not Available Not Available hydrochlo rothiazid e 12.5 mg tablet active Not Available Not Available Not Available diclofena c 1 % topical gel APPLY 2 GRAMS TO THE AFFECTED AREA(S) ON THE SKIN 4 TIMES DAILY active Not Available Not Available No t Available Vitals Date Recorded Body height Body mass index (BMI) Body weight Body temperature Systolic blood pressure Diastolic blood pressure Provider Name and Address Organization Details Last Updated DateTime 3 187.96 cm 32.3 kg/m2 054610. 84 g 95.7 [degF] 138 mm[Hg] 74 mm[Hg] Allison Bender [facility] 3 10:47:58 Social History Question Answer Notes LastModified by Organizat ion Details LastModified Time Tobacco Smoking Status Never Smoker Allison Bender null, [facility] 11/05/2022 10:46:12 What Is Your Level Of Alcohol Consumption? None Information not available 11/05/2022 Are You Blind Or Do You Have Difficulty Seeing? No Information not available 11/05/2022 Are You Deaf Or Do You Have Serious Difficulty Hearing? No Information not available 11/05/2022 What Type Of Diet Are You Following? REGULAR Information not available 11/05/2022 What Is Your Relationship Status? Information not available 11/05/2022 Are You Sexually Active? Yes Information not available 11/05/2022 Do You Use Any Illicit Or Recreational Drugs? No Information not available 11/05/2022 Do You Or Have You Ever Used Any Other Forms Of Tobacco Or Nicotine? No Information not available 11/05/2022 Sex: Unknown Functional Status Question Answer Note LastModified by Organizat ion Details LastModified Time What is your exercise level? Occasional Information not available 11/05/2022 Mental Status None recorded. Family History Relationship Description Onset Age of this Age Resolved Age Notes LastModified by Organization Details LastModified Time Father No current problems or disability Not available 10:45:18 Mother No current problems or disability Not available 10:45:19 Medical History No medical history recorded. Gynecological History Statement/Question Response Date of Last Colonoscopy 05/07/2022 Date of last HPV 03/26/2021 Most Recent Bone Density Date of Last Pap Smear 03/26/2021 Most Recent Mammogram 05/19/2021 Current Control Method None Age at Menarche 13 Obstetrics History GPAL:G 1 P 1 0 0 0 Type Value Full Term 1 Total 1 Past Encounters Encounter ID Performer Location Encounter Start Date Encounter Closed Date Diagnosis/Indication Diagnosis SNOMED-CT Code Diagnosis ICD10 Code Diagnosis Note [id number] Bennett Qureshi DO [facility] [address] [place] [address] 11/05/2022 09:46:31 11/05/2022 17:52:01 Gynecologic examination 73795270 Z01.419 Screening for malignant neoplasm of breast 719954312 Z12.31 Screening for osteoporosis 787476280 Z13.820 Depression screening 171 172649 Z13.31 Health Concerns Section Related Observation LastModified by Organization Detai ls LastModified Time None Recorded Concern Status LastModified by Organization Details LastModified Time None Recorded Advance Directives Directive None Recorded Payers Encounter Date Sequence Insurance Name Policy Number Policy Gaona Covered Member ID Gaona Member ID Guarantor Name 11/05/2022 1 [facility] (PPO) [id number] Pio Mcdowell [id number] Sania Mcdowell Notes Date Note Type Note Provider Name and Address Organization Details Recorded Time 11/05/2022 text/html Annual Negative Turner Post-MenopausalRep orted bypatient.Menopaus al Symptoms:no menopausal symptoms; normal vaginal lubrication Vaginal Bleeding:history of menopause having occurred; no history of post menopausal bleeding Urinary Symptoms:no hematuria; no incontinence; no nocturia; no urinary frequency Vulva:no genital lesion; no vulvar atrophy Vagina:normal vaginal discharge; no vaginal atrophy Breast:no breast lump; no nipple discharge; no breast pain Sexual Complaints:no sexual complaints Psychological Symptoms:no depression; no anxiety Preventive Measures:encourage regular mammograms starting age 40; encourage self breast examination; encourage regular exercise [place] [address] [facility], [place], [address], [facility] 11/05/2022 11:05:01 OBGyn Episode No OBEpisode recorded.
== END 2024-08-12 10:01 | disposition home or self-care (01) ==
PROVIDERS: PCP Internal Medicine; Visit Provider Internal Medicine
DX: Z12.31 Encounter for screening mammogram for malignant neoplasm of breast (principal)
CPT/HCPCS: 77063; 77067

== ENCOUNTER 2025-02-28 12:25 | Outpatient (CLI) | payer BC, SELFPAY ==
--- NOTE | ~2025-02-28 | DEXA_ITS ---
Bone Density Report Name: SILVANO ALFREDO Age: 69 Sex: Female Ethnicity: White Date of : 1955 Indication: postmenopausal; screening for osteoporosis; height loss; Referring Provider: REAGAN, JEREMÍAS Study: Bone densitometry was performed. Exam Date: February 28, 2025 Accession number: [id number] Bone Density: Region BMD T-score Z-score Classification AP Spine(L1-L4) 0.971 -0.7 1.3 Normal Femoral Neck (Left) 1.057 1.9 3.6 Normal Total Hip (Left) 1.107 1.4 2.8 Normal Femoral Neck (Right) 1.061 1.9 3.6 Normal Total Hip (Right) 1.112 1.4 2.8 Normal Total Hip Mean 1.110 1.4 2.8 Normal World Health Organization criteria for BMD impression classify patients as: Normal (T-score at or above -1.0), Osteopenia (T-score between -1.0 and -2.5), or Osteoporosis (T-score at or below -2.5). 10-year Fracture Risk: FRAX not reported because: All T-scores for Spine Total, Hip Total, Femoral Neck at or above -1.0 Clinical Information Provided by Patient: Has used the following medications: Vitamin D Patient maximum height was 73.0 Menopause Age: 56 Onset of menses at age 13 Number of children 1 Impression: The patient has normal bone mass. Discussion: BONE DENSITY IS ABOVE THE MINIMUM DESIRABLE LEVEL AT ALL SKELETAL SITES TESTED. This patient?s bone mineral density is above the minimum desirable level (T-score -1.0 or better) at all sites measured. The patient should follow a healthful lifestyle (good nutrition with adequate calcium and vitamin D, and appropriate weight-bearing exercise). Follow-Up: Consider repeating this study in 5 years or sooner if there is some new clinical indication. Reported by: TAMARA on 02/28/2025 1:09:00 PM. Reviewed, dictated and finalized at location A.
--- OUTSIDE RECORDS SUMMARY | 2025-02-28 13:26 | XMS_ITS | Clinical Summary ---
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
== END 2025-02-28 12:26 | disposition home or self-care (01) ==
PROVIDERS: PCP Internal Medicine; Visit Provider Internal Medicine
DX: Z78.0 Asymptomatic menopausal state (principal)
CPT/HCPCS: 77080